=== PATIENT | male | born 1970 | race Caucasian/White ===

== ENCOUNTER 2025-04-10 11:00 | Emergency (ER) | payer SELFPAY ==
[~2025-04-10] VITALS: Ht 172.7 cm; Wt 85.0 kg
[2025-04-10 11:12] VITALS: O2SAT 97
[2025-04-10] MEDS: TETANUS, DIPHTHERIA, PERTUSSIS VAC/PF 0.5ML (>10YR OLD) IM ONE (12:27)
[2025-04-10] MEDS ORDERED: NEOM28OI48 TP (12:45)
[2025-04-10] MEDS ORDERED: AMOX1TAB16 MT (12:45)
[2025-04-10 13:12] VITALS: BP 179/90; PULSE 60; RESP 18; TEMP 36.8; O2SAT 98
== END 2025-04-10 13:15 | disposition home or self-care (01) ==
LOC: ER 11:41
DX: S81.852A Open bite, left lower leg, initial encounter (principal); Z79.899 Other long term (current) drug therapy; W54.0XXA Bitten by dog, initial encounter; Y93.89 Activity, other specified; Y92.89 Other specified places as the place of occurrence of the external cause; Y99.8 Other external cause status
CPT/HCPCS: 90471; 90715; 99283